=== PATIENT | male | born 1985 | race Two or more races ===

== ENCOUNTER 2021-01-19 11:52 | Emergency (ER) | payer OTHER ==
[~2021-01-19] VITALS: Ht 175.3 cm; Wt 81.6 kg
== END 2021-01-19 17:35 | disposition home or self-care (01) ==
LOC: ER 11:52
DX: S51.822A Laceration with foreign body of left forearm, initial encounter (principal); W26.8XXA Contact with other sharp object(s), not elsewhere classified, initial encounter; Y93.18 Activity, surfing, windsurfing and boogie boarding; Y92.832 Beach as the place of occurrence of the external cause; Y99.8 Other external cause status